=== PATIENT | female | born 1995 | race Caucasian/White ===

== ENCOUNTER 2016-08-28 11:29 | Emergency (ER) | payer OTHER ==
[2016-08-28 11:57] VITALS: BP 115/62; PULSE 78; RESP 18; TEMP 99; O2SAT 96
[2016-08-28] MEDS ORDERED: IBUPROFEN 200 MG TAB PO ONE (12:25)
--- NOTE | 2016-08-28 12:28 | UCPHY ---
H & P Time Seen by Provider: 08/28/16 12:19 Patient Type: New HPI/ROS: This patient injured her ankle at work. She works in [email or web address] in the [employer] [employer]. She stepped on some type of widely platform and da her left ankle with pain the medial aspect of the ankle since. The injury occurred yesterday. She reports the pain worsens with weight-bearing with no other exacerbating factors noted. She reports mild ecchymosis to the medial aspect of her ankle since then. She did not entirely fall to the ground. ROS: No numbness. No other musculoskeletal injuries. 5 point ROS is otherwise negative. Past Medical/Surgical History: Otherwise healthy Smoking Status: Never smoked Physical Exam: Physical Exam Vital signs are normal. General: No acute distress HEENT: Atraumatic. Eyes: Pupils equal and react to light. Extraocular motions are intact. Lungs: No respiratory distress. Cardiac: Brisk capillary refill is intact throughout. Pulses are 2+ and symmetric in the affected extremity. Skin: No rash or pallor. Extremities: Atraumatic normal except for left ankle Left ankle: Patient has medial ecchymosis and tenderness with deltoid ligament region. Anterior drawer is negative for laxity. No lateral tenderness or Achilles tenderness. No foot swelling or tenderness. Neuro: Alert and oriented x3 with no sensorimotor deficits. Initial differential diagnosis: Ankle sprain versus fracture. Constitutional: Initial Vital Signs Temperature (C) 37.2 C 08/28/16 11:55 Heart Rate 78 08/28/16 11:55 Respiratory Rate 18 08/28/16 11:55 Blood Pressure 115/62 08/28/16 11:55 O2 Sat (%) 96 08/28/16 11:55 O2 Delivery Mode Room Air Allergies/Adverse Reactions: amoxicillin Allergy (Verified 08/28/16 11:55) Home Medications: Medication Instructions Recorded NK [No Known Home Meds] 08/28/16 MDM/Departure - MDM Diagnostics: Ankle x-ray: No fracture by my interpretation this is confirmed by Dr. Newton-radiologist. Medications Given: Discontinued Medications Ibuprofen (Motrin) 600 mg PO EDNOW ONE Stop: 08/28/16 12:26 Last Admin: 08/28/16 13:00 Dose: 600 mg ED Course/Re-evaluation: I counseled patient regarding ankle sprain. She is placed in a stirrup splint. Ibuprofen for pain. - Depart Disposition: Home, Routine, Self-Care Clinical Impression: Ankle sprain Qualifiers: Encounter type: initial encounter Involved ligament of ankle: deltoid ligament Laterality: left Qualified Code(s): S93.422A - Sprain of deltoid ligament of left ankle, initial encounter Condition: Good Instructions: Ankle Sprain (ED), Crutch Instructions (ED) Additional Instructions: Diagnosis: Ankle sprain Plan: Ibuprofen 400 600 mg every 6 hours for pain and swelling until symptoms resolve. Tylenol in addition if needed. Splint until your symptoms resolve. When you can bear weights and walk without any significant pain, then start rehabilitation exercises. These rehab. exercises will include gentle stretches the 4 directions, "the alphabet", and manual resistance exercises in the 4 directions. Continue these exercises for the next several months revealed to rebuild your ankle strength. If your ankle is not improving with the above plan or for worsening symptoms call orthopedic M.D. for followup appointment. Stand Alone Forms: Work Excuse Referrals: NONE *PRIMARY CARE P,. [Primary Care Provider] - As per Instructions - PQRS PQRS Measurement: NA
[2016-08-28] MEDS ORDERED: IBUPROFEN 600 MG TAB PO ONE (12:50)
== END 2016-08-28 13:00 | disposition home or self-care (01) ==
LOC: CED 11:29
DX: S93.422A Sprain of deltoid ligament of left ankle, initial encounter (principal); Y92.512 Supermarket, store or market as the place of occurrence of the external cause
CPT/HCPCS: 73610-PO; 99203-PO; G0463-PO; L4350